=== PATIENT | female | born 1995 | race Two or more races ===

== ENCOUNTER 2019-03-10 21:24 | Emergency (ER) | payer MEDICAID, OTHER ==
[~2019-03-10] VITALS: Ht 154.9 cm; Wt 56.7 kg
--- NOTE | 2019-03-10 21:55 | NUR ---
Jayme asif in ED - 03/10/19 at 2259 by MICHAEL CALLED PT TO BE TRAIGED, NO ANSWER
[2019-03-10 22:10] VITALS: BP 124/72
== END 2019-03-10 23:26 | disposition home or self-care (01) ==
LOC: ER 21:24
DX: J02.9 Acute pharyngitis, unspecified (principal); Z60.2 Problems related to living alone